=== PATIENT | female | born 2000 | race Two or more races ===

== ENCOUNTER 2024-10-21 12:17 | Emergency (ER) | payer BC, SELFPAY ==
[2024-10-21 12:19] VITALS: BMI 32.4
[2024-10-21 12:51] VITALS: BP 105/72; PULSE 100; RESP 16; TEMP 36.9; O2SAT 100; BMI 32.4
--- NOTE | 2024-10-21 13:02 | PD.EDNV ---
Nausea/Vomit./Diarrhea-RME/HPI General Chief complaint: Abdominal Pain Stated complaint: ABD PAIN, N/D/CONSTIP, STARTED THIS AM, HEARTBURN Time Seen by Provider: 10/21/24 12:59 Arrival date/time: 10/21/24 12:17 23-year-old female presents to the emergency department complaints of abdominal pain nausea vomiting diarrhea Limitations: no limitations Related Data Previous Rx's ?Medication ?Instructions ?Recorded ibuprofen 800 mg tablet 800 mg PO TID PRN pain #30 tabs 07/21/21 diphenhydramine HCl 25 mg capsule 25 mg PO Q8H PRN allergic symptoms 03/04/24 (Benadryl) #30 caps loperamide 2 mg capsule (Imodium 2 mg PO Q6H PRN loose stool #14 10/21/24 A-D) caps ondansetron 4 mg disintegrating 4 mg PO Q8H PRN nausea and 10/21/24 tablet vomiting #10 tabs Allergies Allergy/AdvReac Type Severity Reaction Status Date / Time latex Allergy Mild Redness of Verified 10/21/24 12:24 Skin Review of Systems Review of Systems Systems Reviewed: All systems reviewed, normal except as documented Constitutional Constitutional: Reports system reviewed and no additional complaints, except as documented, Denies fever(s) and Denies headache(s) Eyes Eyes: Reports system reviewed and no additional complaints, except as documented and Denies blurry vision ENT Ears, Nose, Mouth, and Throat: Reports system reviewed and no additional complaints, except as documented, Denies headache(s), Denies nasal congestion and Denies nasal discharge Cardiovascular Cardiovascular: Reports system reviewed and no additional complaints, except as documented, Denies chest pain and Denies dyspnea Respiratory Respiratory: Reports system reviewed and no additional complaints, except as documented, Denies chest congestion, Denies cough and Denies dyspnea Gastrointestinal Gastrointestinal: Reports system reviewed and no additional complaints, except as documented, Reports abdominal pain, Reports loose stools, Reports nausea and Reports vomiting Integumentary/Breasts Skin/Breast: Reports system reviewed and no additional complaints, except as documented and Denies rash Neurologic Neurologic: Reports system reviewed and no additional complaints, except as documented, Reports as per HPI and Denies headache(s) Past Medical History Past Medical History NEUROLOGIC: Negative Neurological Disorders OTHER HISTORY: Negative Autoimmune Disease Family History FAMILY HISTORY: Positive Family Cardiac Disorders (grandmother-pace maker, HTN); Negative Family Psychiatric Problems, Family Respiratory Disorders, Family Gastrointestinal Problems, Family Cancer, Family Surgery or Family Anesthesia Reaction Surgical History SURGICAL: Negative Section Social History SMOKING STATUS: Former smoker SECOND HAND EXPOSURE: No ED Exam General Limitations: Present no limitations General appearance: Present alert and in no apparent distress Head Head exam: Present atraumatic, normocephalic and normal inspection Eye Eye exam: Present normal appearance, PERRL and EOMI; Absent conjunctival injection ENT ENT exam: Present normal exam, normal oropharynx and mucous membranes moist Neck Neck exam: Present normal inspection, full ROM and trachea midline Chest Chest inspection: Present normal inspection and symmetric chest wall rise Respiratory Respiratory exam: Present normal lung sounds bilaterally Cardiovascular Cardiovascular exam: Present regular rate, normal rhythm and normal heart sounds Abdominal Exam Abdominal exam: Present soft and normal bowel sounds; Absent distention, tenderness, guarding, rebound or rigidity Extremities Exam Extremities exam: Present normal inspection and full ROM Back Exam Back exam: Present normal inspection and full ROM Neurological Exam Neurological exam: Present alert, oriented X3 and CN II-XII intact Psychiatric Psychiatric exam: Present normal affect and normal mood Skin Skin exam: Present warm, dry, intact and normal color Course Quality Measures none Orders Category Date Time Status Loperamide [Imodium] Med 10/21/24 13:00 Discontinued 4 mg PO X1 ONE Metoclopramide Inj [Reglan Inj] Med 10/21/24 13:00 Discontinued 10 mg IM X1 ONE Vital Signs Vital signs: Vital Signs Temperature 98.4 F 10/21/24 12:51 Pulse Rate 100 10/21/24 12:51 Respiratory Rate 16 10/21/24 12:51 Blood Pressure 105/72 10/21/24 12:51 Pulse Oximetry (%) 100 10/21/24 12:51 Oxygen Delivery Method Room Air 10/21/24 12:51 O2 saturation 100% on room air within normal limits Nausea/Vomiting/Diarrhea MDM Narrative MDM Narrative:: 23-year-old female presents to the emergency department for complaints of abdominal pain nausea vomiting and diarrhea On exam patient well-appearing patient does not appear ill or toxic in no acute distress Symptoms are highly consistent with viral illness patient be treated with Imodium and Zofran Patient discharged home in no distress to follow-up with primary care doctor in the next 24 to 48 hours and for any worsening symptoms to return to the ER immediately Patient data External records reviewed:: [facility] previous records Clinical information provided by:: patient Social determinants that could affect healthcare access:: none Patient has the following chronic illnesses:: None How is presenting disease/condition affected by chronic disease/condition?: no chronic disease Evaluation data The following diagnostics were reviewed and interpreted by me:: other (specify) (N/A) Lab and/or radiology exams considered but not ordered:: Consider not ordered Interpretation Summary: N/A Medications / Prescriptions Medications / Prescriptions considered but not ordered:: Given Medication administrations:: Medication Administration History Discontinued Medications Loperamide HCl (Loperamide 2 Mg Capsule) 4 mg PO X1 ONE Stop: 10/21/24 13:01 Last Admin: 10/21/24 13:11 Dose: 4 mg Documented By: Metoclopramide HCl (Metoclopramide Inj 5 Mg/Ml Vial 2 Ml) 10 mg IM X1 ONE; Protocol Stop: 10/21/24 13:01 Last Admin: 10/21/24 13:11 Dose: 10 mg Documented By: Given Consultations Consultation(s) initiated? (list below): No Diagnosis Nausea Differential Diagnosis: traveler's diarrhea, food poisoning and gastroenteritis Most likely diagnosis given after review of the tests above:: Gastritis Admission Indicated Admission indicated?: not indicated Admission Request Was there a request for admission?: No Disposition Plan Disposition Plan: Discharge Discharge Attestation Discharge Attestation: The patient and all family members were given an opportunity to ask questions and understood the discharge instructions. Discharge instructions specifically effects, indications for sooner follow up or return to the emergency department, and the expected course of current diagnosis. Patient condition: Stable Discharge Plan Plan Patient Disposition: HOME (Self Care) Disposition Comment: Stable Prescriptions/Referrals Prescriptions/Med Rec: New loperamide [Imodium A-D] 2 mg capsule 2 mg PO Q6H PRN (Reason: loose stool) Qty: 14 0RF ondansetron 4 mg tablet,disintegrating 4 mg PO Q8H PRN (Reason: nausea and vomiting) Qty: 10 0RF No Action ibuprofen 800 mg tablet 800 mg PO TID PRN (Reason: pain) Qty: 30 0RF diphenhydramine HCl [Benadryl] 25 mg capsule 25 mg PO Q8H PRN (Reason: allergic symptoms) Qty: 30 0RF Problem List Clinical Impression: Nausea vomiting and diarrhea Patient/Caregiver Discharge Instructions Education Materials: ED Vomiting (Adult) Additional Instructions: Please follow up with your primary care doctor in the next 24-48hrs for any worsening symptoms return here immediately Print Language: Telugu Stand Alone Forms: Анна Award Info., Work/School Release, Patient Portal Info Letter PA/MOVIE THEATER MANAGER Supervising Physician PA/MOVIE THEATER MANAGER Supervising Physician: Dr. griffiths
[2024-10-21] MEDS: METOCLOPRAMIDE INJ 5 MG/ML VIAL 2 ML 10 MG IM (13:11)
[2024-10-21] MEDS: LOPERAMIDE 2 MG CAPSULE 4 MG PO (13:11)
== END 2024-10-21 13:15 | disposition home or self-care (01) ==
LOC: SERX 13:16
PROVIDERS: Emergency Provider Family Medicine; PCP Family Medicine
DX: R11.2 Nausea with vomiting, unspecified (principal); R19.7 Diarrhea, unspecified; R10.9 Unspecified abdominal pain
CPT/HCPCS: 96372; 99283; J2765; A9270

== ENCOUNTER 2025-04-02 17:58 | Emergency (ER) | payer MEDICAID, SELFPAY ==
[2025-04-02 18:00] VITALS: BMI 32.5
[2025-04-02 19:10] VITALS: BP 136/91; PULSE 61; RESP 18; TEMP 36.7; O2SAT 100
--- NOTE | 2025-04-02 19:29 | PD.EDHEAD ---
ED Head Injury RME/HPI General Chief complaint: Dizziness Stated complaint: HIT HEAD ON HEADBROAD, NAUSEA, DIZZINESS Time Seen by Provider: 04/02/25 19:23 Arrival date/time: 04/02/25 17:58 24F with no significant PMH presents to ED with dizziness after patient jumped on her bed and accidentally hit her headboard. Patient states TRIPP gone with Tylenol, but there's some dizziness. Patient denies LOC, AMS, seizures, N/V, and vision changes. Nothing coming out of ears/nose. Limitations: no limitations Related Data Previous Rx's ?Medication ?Instructions ?Recorded ibuprofen 800 mg tablet 800 mg PO TID PRN pain #30 tabs 07/21/21 diphenhydramine HCl 25 mg capsule 25 mg PO Q8H PRN allergic symptoms 03/04/24 (Benadryl) #30 caps loperamide 2 mg capsule (Imodium 2 mg PO Q6H PRN loose stool #14 10/21/24 A-D) caps ondansetron 4 mg disintegrating 4 mg PO Q8H PRN nausea and 10/21/24 tablet vomiting #10 tabs Allergies Allergy/AdvReac Type Severity Reaction Status Date / Time latex Allergy Mild Redness of Verified 04/02/25 17:59 Skin Review of Systems Review of Systems Systems Reviewed: All systems reviewed, normal except as documented Constitutional Constitutional: Reports as per HPI and Reports headache(s) ENT Ears, Nose, Mouth, and Throat: Reports as per HPI, Reports headache(s) and Reports vertigo Neurologic Neurologic: Reports headache(s) and Reports vertigo Past Medical History Past Medical History NEUROLOGIC: Negative Neurological Disorders OTHER HISTORY: Negative Autoimmune Disease Family History FAMILY HISTORY: Positive Family Cardiac Disorders (grandmother-pace maker, HTN); Negative Family Psychiatric Problems, Family Respiratory Disorders, Family Gastrointestinal Problems, Family Cancer, Family Surgery or Family Anesthesia Reaction Surgical History SURGICAL: Negative Section Social History SMOKING STATUS: Never smoker SECOND HAND EXPOSURE: No ED Exam General Limitations: Present no limitations General appearance: Present alert and in no apparent distress Head Head exam: Present atraumatic Eye Eye exam: Present normal appearance, PERRL and EOMI Neck Neck exam: Present normal inspection, full ROM and trachea midline Chest Chest inspection: Present normal inspection and symmetric chest wall rise Extremities Exam Extremities exam: Present normal inspection and full ROM Back Exam Back exam: Present normal inspection and full ROM Neurological Exam Neurological exam: Present alert, oriented X3 and CN II-XII intact Psychiatric Psychiatric exam: Present normal affect and normal mood Skin Skin exam: Present warm, dry, intact and normal color Course Quality Measures none Vital Signs Vital signs: Vital Signs Temperature 98.0 F 04/02/25 19:10 Pulse Rate 61 04/02/25 19:10 Respiratory Rate 18 04/02/25 19:10 Blood Pressure 136/91 H 04/02/25 19:10 Pulse Oximetry (%) 100 04/02/25 19:10 Oxygen Delivery Method Room Air 04/02/25 19:10 O2 at 100% on RA and WNLs Head Injury MDM Narrative MDM Narrative:: 24F with no significant PMH presents to ED with dizziness after patient jumped on her bed and accidentally hit her headboard. Patient states TRIPP gone with Tylenol, but there's some dizziness. Patient denies LOC, AMS, seizures, N/V, and vision changes. Nothing coming out of ears/nose. Physical exam reveals normal pupil response and EOM. No gross head trauma. Neck ROM intact. Gait normal. Through shared decision-making, no CT given high radiation, benign clinical presentation, minor JOVANY, and overall improving symptoms. Grain Elevator Superintendent given. Patient data External records reviewed:: [facility] previous records Clinical information provided by:: patient Social determinants that could affect healthcare access:: none Patient has the following chronic illnesses:: none How is presenting disease/condition affected by chronic disease/condition?: no chronic disease Evaluation data The following diagnostics were reviewed and interpreted by me:: other (specify) (none) Lab and/or radiology exams considered but not ordered:: not ordered Interpretation Summary: n/a Medications / Prescriptions Medications or Prescriptions considered but not ordered:: not ordered Medication administrations:: n/a Consultations Consultation(s) initiated? (list below): No Diagnosis Differential diagnosis head injury: concussion without loss of consciousness, epidural hematoma, closed head injury, subarachnoid hematoma, postconcussion syndrome and subdural hematoma Most likely diagnosis given after review of the tests above:: CHI Admission Indicated Admission indicated?: not indicated Admission Request Was there a request for admission?: No Disposition Plan Disposition Plan: Discharge Discharge Attestation Discharge Attestation: The patient and all family members were given an opportunity to ask questions and understood the discharge instructions. Discharge instructions specifically effects, indications for sooner follow up or return to the emergency department, and the expected course of current diagnosis. Patient condition: Stable Discharge Plan Plan Patient Disposition: HOME (Self Care) Discharge Disposition comment: Stable Prescriptions/Referrals Prescriptions/Med Rec: No Action ibuprofen 800 mg tablet 800 mg PO TID PRN (Reason: pain) Qty: 30 0RF diphenhydramine HCl [Benadryl] 25 mg capsule 25 mg PO Q8H PRN (Reason: allergic symptoms) Qty: 30 0RF loperamide [Imodium A-D] 2 mg capsule 2 mg PO Q6H PRN (Reason: loose stool) Qty: 14 0RF ondansetron 4 mg tablet,disintegrating 4 mg PO Q8H PRN (Reason: nausea and vomiting) Qty: 10 0RF Problem List Clinical Impression: CHI (closed head injury) Patient/Caregiver Discharge Instructions Education Materials: ED Head Injury with Sleep ... Additional Instructions: Please follow-up with PCP within 24-48 hours and return immediately if symptoms worsen. For the next 24-48 hours, watch for unexplained nausea/vomiting, confusion, lethargy, not acting like yourself, and seizures. Print Language: Gabonese Stand Alone Forms: Work/School Release, Patient Portal Info Letter TAMIKO/TALITA Supervising Physician TAMIKO/TALITA Supervising Physician: Dr. Jessica
== END 2025-04-02 19:40 | disposition home or self-care (01) ==
LOC: SERX 20:04
PROVIDERS: Emergency Provider Emergency Medicine
DX: S09.90XA Unspecified injury of head, initial encounter (principal); W22.8XXA Striking against or struck by other objects, initial encounter
CPT/HCPCS: 99281

== ENCOUNTER 2025-05-21 21:45 | Emergency (ER) | payer MEDICAID, SELFPAY ==
[2025-05-21 21:48] VITALS: BMI 33.3
[2025-05-21 22:35] VITALS: BP 128/89; PULSE 69; RESP 19; TEMP 37.1; O2SAT 99
[2025-05-21] MEDS: DIPHTH,PERTUSS(ACELL),TET VAC 0.5 ML SYR- ADULT IMi (23:37)
[2025-05-22 00:01] LABS: HIV (1&2) Antibody Rapid Non-Reactive
[2025-05-22 00:22] VITALS: RESP 12
[2025-05-23 20:13] LABS: Hepatitis B Core Antibody IgM Non Reactive (Non React); Hepatitis B Surface Ab NonReact(Not Immune) (Immune); Hepatitis B Surface Antigen Non Reactive (Non React); Hepatitis C Antibody Non Reactive (Non React)
[2025-05-27 06:44] LABS: Hepatitis B Core Ab,Total* NONREACTIVE
--- NOTE | 2025-08-28 06:13 | EDNOTE_ITS ---
ED General RME/HPI General Chief complaint: General Adult/Misc Complain Stated complaint: NEDDLE STICK Time Seen by Provider: 05/21/25 22:06 Arrival date/time: 05/21/25 21:45 This is a case of 54-year-old female with no medical history came in the emergency room due to needlestick injury patient did not tolerate his finger after injecting the wound a patient sustaining a puncture to it on the finger no other injury noted Limitations: no limitations Related Data Previous Rx's ?Medication ?Instructions ?Recorded ibuprofen 800 mg tablet 800 mg PO TID PRN pain #30 t abs 07/21/21 diphenhydramine HCl 25 mg capsule 25 mg PO Q8H PRN all ergic symptoms 03/04/24 (Benadryl) #30 caps loperamide 2 mg capsule (Imodium 2 mg PO Q6H PRN loose stool #14 10/21/24 A-D) caps ondansetron 4 mg disintegrating 4 mg PO Q8H PRN nausea and 10/21/24 tablet vomiting #10 tabs cephalexin 500 mg capsule 500 mg PO Q8H #30 caps 05/21 mupirocin 2 % topical ointment 1 applic topical TID #2 2 grams 05/21/25 (Centany) Allergies Allergy/AdvReac Type Severity Reaction Status Date / Time latex Allergy Mild Redness of Verified 04/02/25 17:59 Skin Review of Systems Review of Systems Systems Reviewed: All systems reviewed, normal except as documented Past Medical History Past Medical History NEUROLOGIC: Negative Neurological Disorders OTHER HISTORY: Negative Autoimmune Disease Family History FAMILY HISTORY: Positive Family Cardiac Disorders (grandmother-pace maker, HTN); Negative Family Psychiatric Problems, Family Respiratory Disorders, Family Gastrointestinal Problems, Family Cancer, Family Surgery or Family Anesthesia Reaction Surgical History SURGICAL: Negative Section Social History SMOKING STATUS: Never smoker SECOND HAND EXPOSURE: No ED Exam General Limitations: Present no limitations General appearance: Present alert and in no apparent distress Head Head exam: Present atraumatic Eye Eye exam: Present normal appearance, PERRL and EOMI ENT ENT exam: Present normal exam, normal oropharynx and mucous membranes moist Neck Neck exam: Present normal inspection, full ROM and trachea midline Chest Chest inspection: Present normal inspection and symmetric chest wall rise Respiratory Respiratory exam: Present normal lung sounds bilaterally Cardiovascular Cardiovascular exam: Present regular rate, normal rhythm and normal heart sounds Abdominal Exam Abdominal exam: Present soft and normal bowel sounds Extremities Exam Extremities exam: Present normal inspection and full ROM Back Exam Back exam: Present normal inspection and full ROM Neurological Exam Neurological exam: Present alert, oriented X3, CN II-XII intact and normal gait; Absent motor sensory deficit or reflexes normal Psychiatric Psychiatric exam: Present normal affect and normal mood Skin Skin exam: Present warm, dry, intact, normal color and other (Noted a puncture wound on the finger no redness no swelling no abscess no cellulitis RRR) Course Quality Measures none Orders Category Date Time Status HIV RAPID [HIV (1&2) Antibody Rapid] Stat Lab 05/21/25 23:05 Completed Hepatitis B Core Ab,Total* Stat Lab 05/21/25 23:05 Completed Hepatitis B Core Antibody IgM Stat Lab 05/21/25 23:05 Completed Hepatitis B Surface Ab Stat Lab 05/21/25 23:05 Completed Hepatitis B Surface Antigen Stat Lab 05/21/25 23:05 Completed Hepatitis C Antibody Stat Lab 05/21/25 23:05 Completed TET,DIP/PERT AC (Adult)-Tdap [Boostrix Adult (Tdap) Med 05/21/25 22:43 Discontinued Vacc] 0.5 ml IMI .ONCE ONE Vital Signs Vital signs: Vital Signs Temperature 98.8 F 05/21/25 22:35 Pulse Rate 69 05/21/25 22:35 Respiratory Rate 19 05/21/25 22:35 Blood Pressure 128/89 H 05/21/25 22:35 Pulse Oximetry (%) 99 05/21/25 22:35 Oxygen Delivery Method Room Air 05/21/25 22:35 Vital signs stable Discharge Plan Plan Patient Disposition: HOME (Self Care) Patient condition on transfer: Stable Prescriptions/Referrals Prescriptions/Med Rec: New cephalexin 500 mg capsule 500 mg PO Q8H Qty: 30 0RF mupirocin [Centany] 2 % ointment 1 applic topical TID Qty: 22 0RF No Action ibuprofen 800 mg tablet 800 mg PO TID PRN (Reason: pain) Qty: 30 0RF diphenhydramine HCl [Benadryl] 25 mg capsule 25 mg PO Q8H PRN (Reason: allergic symptoms) Qty: 30 0RF loperamide [Imodium A-D] 2 mg capsule 2 mg PO Q6H PRN (Reason: loose stool) Qty: 14 0RF ondansetron 4 mg tablet,disintegrating 4 mg PO Q8H PRN (Reason: nausea and vomiting) Qty: 10 0RF Problem List Clinical Impression: Needlestick injury accident, Puncture wound Patient/Caregiver Discharge Instructions Education Materials: ED Wound Care Additional Instructions: Follow-up with your watch train inspector in 2 days for reevaluation worsening symptoms or any emergent concern call 911 or go to the nearest emergency room keep the area clean and dry finish the course of antibiotic Print Language: Uruguayan Stand Alone Forms: Анна Award Info., Patient Portal Info Letter PA/RESIDENTIAL TREATMENT COUNSELOR Supervising Physician PA/RESIDENTIAL TREATMENT COUNSELOR Supervising Physician: Dr. Patel MDM Narrative MDM hospital course (for use when minimal MDM required): Patient was discharged with comfortable condition walking with stable gait. Patient verbalized no further complains explained diagnosis and answered patient question. Patient is comfortable with the proposed management plan including the need to follow up with his/her primary care physician and any specialist if applicable Discussed patient for any urgent condition or worsening sx, He/She needed to go to emergency room immediately or call 911. Patient acknowledge the responsibility to follow up as instructed and to monitor her/his symptoms. For any persistence of the symptoms for more than 3-5 days return precaution advised. Discussed the result of the test and was given printed discharge in struction Clinical Information Provided by: none Medical Records reviewed None Meds/Rx considered, not ordered None Labs/Rad/Tests considered, not ordered None Chronic Illness/Social Conditions which may negatively complicate care or outcome(s)-explain: None or not applicable EKG EKG not done Labs Labs: none Imaging Imaging interpretation: none Medication Administration(s) none (none) Medication Administration History Discontinued Medications Diphtheria/Tetanus/Acell Pertussis (Diphth,Pertuss(Acell),Tet Vac 0.5 Ml Syr- Adult) 0.5 ml IMi .ONCE ONE Stop: 05/21/25 22:44 Last Admin: 05/21/25 23:37 Dose: 0.5 ml Documented By: KAREN given Diagnosis Differential Diagnosis ED Complaint MDM: needl stick Diagnoses ruled out and/or further discussions: needle stick
== END 2025-05-22 00:23 | disposition home or self-care (01) ==
LOC: SERX 22:50
PROVIDERS: Nurse Practitioner Family; Emergency Provider Emergency Medicine; PCP Family Medicine
DX: S61.219A Laceration without foreign body of unspecified finger without damage to nail, initial encounter (principal); Z77.21 Contact with and (suspected) exposure to potentially hazardous body fluids; W46.0XXA Contact with hypodermic needle, initial encounter; Y99.0 Civilian activity done for income or pay
CPT/HCPCS: 36415; 86703; 86704; 86705; 86706; 86803; 87340; 90471; 90715; 99282